=== PATIENT | female | born 1970 | race Caucasian/White ===

== ENCOUNTER 2017-07-19 12:43 | Emergency (ER) | payer SELFPAY ==
[2017-07-19 12:44] VITALS: BP 151/96; PULSE 91; RESP 16; TEMP 37.7; O2SAT 98; BMI 29.0
--- NOTE | 2017-07-19 13:21 | RAD_ITS ---
STUDY: X-RAY CHEST REASON FOR EXAM: Female, 47 years old. Cough. Body aches and chills. TECHNIQUE: PA and lateral views of the chest. COMPARISON: Comparison is made with prior study dated January 10, 2016. FINDINGS: There is evidence of a focal lingular infiltrate. Mild increased markings at the right lung base. There is no demonstrated pleural abnormality. Normal size heart. Normal mediastinum and sharda. Normal visualized pulmonary arteries. Normal visualized aortic arch and descending thoracic aorta. Normal visualized thoracic spine. Normal visualized ribs, clavicles, and shoulders. There is no demonstrated abnormality of the visualized soft tissue structures of the upper abdomen. RAD/Chest PA and Lateral IMPRESSION: Lingular infiltrate. Mild increased markings at the right lung base. Electronically Signed: Brenton Cuellar MD at 14:19 EDT Tel [phone], Service support ,
[2017-07-19 13:41] LABS: Absolute Lymphocyte Count 1.73 X10^3/ul (0.83-4.51); Absolute Neutrophil Count 4.1 X10^3/uL (2.0-7.7); Basophil# 0.03 X10^3/uL; Basophil% 0.5 % (0-1); Eosinophil# 0.05 X10^3/uL; Eosinophils% 0.8 % (0-5); Hemoglobin 13.3 g/dl (12.0-15.0); Lymphocyte # 1.73 X10^3/ul (4.0); Lymphocyte % 26.8 % (19-41); Mean Corp Hgb Conc 33.3 g/gl (32-36); Mean Corpuscular Hgb 29.9 pg (27.0-32.0); Mean Corpuscular Volume 89.9 fL (81-99); Mean Platelet Vol. 9.5 fl (6.2-12.0); Monocyte# 0.52 X10^3/uL; Neutrophil # 4.12 X10^3/uL (2.7-7.7); Neutrophil % 63.7 % (47-70); Platelet Count 310 K/mm3 (150-450); RBC Distribution Width CV 13.3 % (11.6-14.6); Red Blood Count 4.45 M/mm3 (4.2-5.4); White Blood Count 6.5 K/mm3 (4.4-11.0)
[2017-07-19] MEDS: 0.9% Normal Saline 1,000 ML 1000 ML IV (13:41)
[2017-07-19] MEDS: Ondansetron 4 MG/2 ML Vial IV (13:42)
[2017-07-19] MEDS: Ketorolac 30 MG/ML Syringe IV (13:42)
[2017-07-19 13:44] LABS: POSITIVE COUNT NO; POSITIVE DIFFERENTIAL NO; POSITIVE MORPHOLOGY NO
[2017-07-19 13:51] LABS: Anion Gap 7 (5-15); BUN 10 mg/dL (7-18); BUN/Creat Ratio 10.8 RATIO (10-20); Calcium,Total 8.6 mg/dL (8.5-10.1); Chloride 104 mmol/L (98-107); Creatinine, Serum 0.92 mg/dL (0.55-1.02); EST Glomerular Filtration Rate 69 mL/min (>60); Est Glom Filt Rate - Afr Amer 84 mL/min (>60); Estimated Creatinine Clearance 70.77 ml/min; Glucose 85 mg/dL (74-106); Potassium 3.5 mmol/L (3.5-5.1); Sodium Level 140 mmol/L (136-145)
--- NOTE | 2017-07-19 14:40 | EKG12_ITS ---
Test Reason : COLD SX Blood Pressure : / mmHG Vent. Rate : 070 BPM Atrial Rate : 070 BPM P-R Int : 176 ms QRS Dur : 088 ms QT Int : 416 ms P-R-T Axes : 073 060 072 degrees QTc Int : 449 ms Normal sinus rhythm with sinus arrhythmia Normal ECG Confirmed by YONATHAN VEE ([id number]), editor department EMIL SANCHEZ ([id number]) on 07/22/2017 1:35:39 PM Referred By: MED Confirmed By:YONATHAN VEE
--- NOTE | 2017-07-19 14:40 | ED.VISSUMM ---
- ER Visit Summary Date of Service: 07/19/17 Chief Complaint: Cough, body aches, chills History of Present Illness: The patient is a 47 F with the above symptoms for the past 1 week. Patient states it started with an ear infection and quickly progressed into cough and body aches. She states her temperature last night was 102.3. She does have chest congestion with a cough but is not really bringing up much sputum. She states she had walking pneumonia a couple of months ago. Physical Examination: Blood pressure is 151/96, temperature 100.0, heart rate 91, respiratory rate 16, pulse ox 98% on room air. Patient is ill-appearing but not toxic. Head neck examination reveals dry mucous membranes. Heart is regular rate and rhythm. No lung sounds are clear with good air movement throughout. Abdomen is soft nontender. Extremity examination reveals no calf tenderness or edema. She has no rash or lesions. Neuro exam is unremarkable. Test Results: Two-view chest x-ray read by radiology reveals a lingular infiltrate. There is mild increased markings at the right lung base. CBC and chemistry studies are unremarkable. Emergency Department Course and Treatment: Patient is given IV fluids, morphine, Toradol, and Zofran. Should be treated with a course of Levaquin, first dose given here. Treatment Plan: [] Disposition: Discharge Impression: Lingular pneumonia This note was generated with [employer] dictation software. It may contain incorrect words, spelling, and punctuation that were not noted in review of the chart prior to signing ED Disposition - Plan for ED Patient: Chief Complaint: Cold Sx Referrals: Leola Gibbs [Primary Care Provider] -
--- NOTE | 2017-07-19 14:42 | ED.DEP ---
ED Disposition - Plan for ED Patient: Disposition: Home or Assisted Living Chief Complaint: Cold Sx Instructions: ED Pneumonia Adult Prescriptions: Levofloxacin [Levaquin] 750 mg PO DAILY #4 tablet Referrals: Leola Gibbs [Primary Care Provider] - 5-7 Days
[2017-07-19] MEDS: levoFLOXacin 750 MG Tablet PO (15:06)
[2017-07-19 15:08] VITALS: BP 129/78; PULSE 69; RESP 15; O2SAT 97
== END 2017-07-19 15:09 | disposition home or self-care (01) ==
PROVIDERS: Emergency Provider Emergency Medicine; Family Provider Family Medicine; PCP Family Medicine
DX: J18.9 Pneumonia, unspecified organism (principal); Z72.0 Tobacco use
CPT/HCPCS: 71046; 80048; 85025; 93005; 96361; 96374; 96375; 99284; J7030; A4216; J2405

== ENCOUNTER 2017-07-22 10:40 | Emergency (ER) | payer SELFPAY ==
[2017-07-22 10:41] VITALS: BP 101/62; PULSE 96; RESP 16; TEMP 36.4; O2SAT 100; BMI 28.1
--- NOTE | 2017-07-22 10:48 | ED.DCSUM_ITS ---
- ER Visit Summary Date of Service: 07/22/17 Chief Complaint: Short of breath and cough History of Present Illness: The patient is a [address] Wallace. She reports that she has a cough began 3-4 weeks ago. She was seen in the emergency department 3 days ago and diagnosed with pneumonia. She was placed on Levaquin. She reports that she has been wheezing and has mild to moderate shortness of breath. She does smoke 1 pack per day. Physical Examination: Vitals: Stable. Afebrile. General: Well-nourished and well-developed. Head: Normocephalic atraumatic. Neck: Supple, no lymphadenopathy. No JVD. Nontender. Cardiovascular: Regular rate and rhythm. No murmurs. Respiratory: No respiratory distress. Mild wheezing bilaterally with good air movement. Abdominal: Soft, nontender, nondistended, normal bowel sounds. No guarding, rebound, or peritoneal signs. Back: Nontender. Extremities: Nontender, no edema. Skin: Normal color, no rash. Neurologic: Alert and oriented ?3. Cranial nerves II through XII are intact. Normal strength and sensation. Psych: Normal affect. Emergency Department Course and Treatment: Patient was treated albuterol Atrovent aerosols. She reports great improvement. She is given a dose of prednisone p.o. Treatment Plan: Patient will be discharged albuterol MDI and a 5 day burst of prednisone. Instructed to continue her Levaquin. Follow-up her primary care physician 1-2 days not improving. Return to the emergency department for any worsening symptoms. Disposition: To home in improved and stable condition. Impression: 1. Pneumonia, community-acquired. 2. Bronchospasm. 3. Tobacco abuse. This note was generated with [employer] dictation software. It may contain incorrect words, spelling, and punctuation that were not noted in review of the chart prior to signing ED Disposition - Plan for ED Patient: Disposition: Home or Assisted Living Chief Complaint: General Illness Instructions: ED Pneumonia Adult Prescriptions: Albuterol Inhaler [Ventolin Hfa] 1 - 2 puff INHALATION Q4H PRN PRN #1 inhaler PRN Reason: Wheezing Prednisone [Deltasone] 60 mg PO DAILY #15 tablet Referrals: Leola Gibbs [Primary Care Provider] - 3-5 Days if not improving
[2017-07-22 11:12] VITALS: PULSE 100; RESP 20
[2017-07-22] MEDS: Ipratropium/Albuterol Sulfate 3 ML AMPUL.NEB INHALATION (11:12)
== END 2017-07-22 12:14 | disposition home or self-care (01) ==
LOC: ED 11:09
PROVIDERS: Emergency Provider Emergency Medicine; Family Provider Family Medicine; PCP Family Medicine
DX: J18.9 Pneumonia, unspecified organism (principal); J98.01 Acute bronchospasm; F17.200 Nicotine dependence, unspecified, uncomplicated; I10 Essential (primary) hypertension; Z79.82 Long term (current) use of aspirin; Z79.899 Other long term (current) drug therapy
CPT/HCPCS: 94640; 99282

== ENCOUNTER 2018-03-15 19:29 | Emergency (ER) | payer SELFPAY ==
[2018-03-15 19:30] VITALS: BP 163/99; PULSE 60; RESP 17; TEMP 36.3; O2SAT 99; BMI 27.4
--- NOTE | 2018-03-15 20:19 | ED.DCSUM_ITS ---
- ER Visit Summary Date of Service: 03/15/18 Chief Complaint: Left eye swelling History of Present Illness: The patient is a 48 F presenting for evaluation secondary to left eye swelling. Patient reports that over the course the last 3 days she has had progressive swelling of her left eye after she had a eyelash that was flipped internally in the corner of her eye. She reports mild blurred vision associated with this. It started with itching, now it is has progressed to pain and matting. She denies any injuries or chemical exposures. Physical Examination: Ocular exam shows swelling of the patient's superior left eyelid. Eyelid eversion shows no evidence of hordeolum, chalazion, or foreign body. PRL, EOMI normal conjunctivae and sclera. Cornea is normal. Extraocular motion is nonpainful. Test Results: None indicated Emergency Department Course and Treatment: Patient presented with eye swelling that seems consistent with blepharitis. She has no evidence of septal or preseptal cellulitis. Patient was placed on antibiotic ointment was recommended on continued warm compresses. She will follow-up with primary care as needed. Disposition: Discharge Impression: 1. OS blepharitis This note was generated with [employer] dictation software. It may contain incorrect words, spelling, and punctuation that were not noted in review of the chart prior to signing ED Disposition - Plan for ED Patient: Disposition: Home or Assisted Living Chief Complaint: Eye Problem Diagnosis: Blepharitis Instructions: ED Inflammation Eyelid Referrals: Leola Gibbs [Primary Care Provider] - 3-5 Days
[2018-03-15 20:29] VITALS: BP 152/60; PULSE 62; RESP 18; O2SAT 98
== END 2018-03-15 20:29 | disposition home or self-care (01) ==
PROVIDERS: Emergency Provider Emergency Medicine; Family Provider Family Medicine; PCP Family Medicine
DX: H01.005 Unspecified blepharitis left lower eyelid (principal); I10 Essential (primary) hypertension; Z72.0 Tobacco use; Z79.51 Long term (current) use of inhaled steroids; Z79.82 Long term (current) use of aspirin; Z79.899 Other long term (current) drug therapy
CPT/HCPCS: 99283

== ENCOUNTER 2018-05-03 11:58 | Emergency (ER) | payer OTHER, SELFPAY ==
[2018-05-03 11:59] VITALS: BP 168/108; PULSE 84; RESP 17; TEMP 36.4; O2SAT 99; BMI 28.1
--- NOTE | 2018-05-03 12:14 | ED.DCSUM_ITS ---
- ER Visit Summary Date of Service: 05/03/18 Chief Complaint: Facial swelling History of Present Illness: The patient is a 48 F presents to the emergency department dental pain and facial swelling. Patient has had poor dentition for years. She is actually scheduled for dental extraction on Saturday. She states yesterday, she was eating potato chips. She states that she think 1 poked into her upper gum. Overnight throughout the morning, she had some increased swelling. She did take Naprosyn with some improvement. She denies any trouble speaking or swallowing. She denies any fevers or chills. She has no history of immunosuppression. Physical Examination: Exam is relatively unremarkable. Patient does have swelling over the gumline of tooth 2 and 3. Her teeth are eroded significantly. Her posterior oropharynx is widely patent. There is no trismus. She has no stridor. Neck is supple without lymph adenopathy. Test Results: [] Emergency Department Course and Treatment: Patient has upper dental abscess with facial swelling. There is nothing that would benefit from incision or drainage at this time. The patient was started on Augmentin continue anti- inflammatories. She already has dental follow-up in place in 4 days and I feel this is reasonable. Patient will be discharged home. Treatment Plan: [] Disposition: Discharge Impression: 1. Periapical abscess This note was generated with [employer] dictation software. It may contain incorrect words, spelling, and punctuation that were not noted in review of the chart prior to signing ED Disposition - Plan for ED Patient: Chief Complaint: Dental Instructions: ED Abscess Dental Prescriptions: Amox/Clavulanate Tablet [Augmentin Tablet] 875 mg PO Q12H #20 tab Naproxen [Naprosyn] 500 mg PO BID PRN #20 tab Referrals: Leola Gibbs [Primary Care Provider] -
[2018-05-03 12:15] VITALS: PULSE 80; RESP 14; O2SAT 99
[2018-05-03] MEDS: Amox/Clavulanate 875 MG Tablet PO (12:28)
== END 2018-05-03 12:31 | disposition home or self-care (01) ==
PROVIDERS: Emergency Provider Emergency Medicine; Family Provider Family Medicine; PCP Family Medicine
DX: K04.7 Periapical abscess without sinus (principal); Z72.0 Tobacco use; Z79.51 Long term (current) use of inhaled steroids; Z79.82 Long term (current) use of aspirin; Z79.899 Other long term (current) drug therapy
CPT/HCPCS: 99282

== ENCOUNTER 2018-10-14 07:09 | Emergency (ER) | payer OTHER, SELFPAY ==
[2018-10-14 07:10] VITALS: BP 171/113; PULSE 66; RESP 18; TEMP 36.6; O2SAT 100; BMI 29.0
--- NOTE | 2018-10-14 07:21 | ED.VIS.HA ---
History of Present Illness Chief Complaint: Headache Informant: Patient Onset: Yesterday Context: Sudden Timing: Continuous Quality: Similar Prior Headaches, Dull Location: Bifrontal, bitemporal and facial Current Severity: Severe Maximum Severity: Severe Worsened by: Apparently nothing Relieved by: Nothing Associated Symptoms: Negative for: Fever, Nausea, Vomiting, Sore Throat, Sinus Pressure, Numbness, Tingling, Preceding Aura, Visual Changes, Blurred Vision, Photophobia, Visual Loss Injury: - - There is no history of trauma Narrative: Patient is a middle-aged woman who presents with bifrontal, bitemporal and by facial pressure dull sensation that started yesterday. She states she has history of migraines. She is no longer on migraine medication. She denies photophobia, change in vision or double vision. She denies auditory symptoms. She denies neck stiffness. She does report pain radiating to the neck and both shoulders. She denies cardiac restaurant symptoms. She denies vomiting or diarrhea. She denies urologic symptoms. She denies rash. She denies paresthesia, anesthesia motors. She denies vertiginous symptoms or problems with balance. Prior similar symptoms: Yes Recent Illness/Hospitalization: No Past Medical History - Allergies and Home Meds Allergies/Adverse Reactions: Allergies No Known Allergies Allergy (Verified 10/14/18 07:11) Primary Care Physician: Leola Gibbs [Primary Care Provider] - Prior records reviewed: Yes Past Medical History: - - Based on medication patient has history of hypertension. Surgical History: noncontributory Lives: Spouse/ Significant Other Smoking Status: Current every day smoker Alcohol: None Drugs: None - Family History Maternal Family History: Reports: Diabetes, Heart Disease - Mother at age of 43 because of heart attack. Paternal Family History: Reports: Hypertension Review of Systems General: Reports: Weight loss - Intentional weight loss. Denies: Chills, Fever, Malaise, Sweats Eyes: Denies: Visual changes - bilaterally, Blurred Vision - bilaterally, Diplopia ENT: Denies: Rhinorrhea, Sore throat Cardiovascular: Denies: Chest pain, Palpitations Respiratory: Denies: Dyspnea, Cough, Dyspnea on exertion Gastrointestinal: Denies: Abdominal pain, Nausea, Vomiting, Diarrhea, Melena, Hematochezia Genitourinary: Denies: Dysuria, Hematuria, Frequency Musculoskeletal: Reports: Neck pain. Denies: Myalgias, Arthralgias, Back pain, Swelling, Extremity Pain, -, - Skin: Denies: Rash, Wounds Neurological: Reports: Headache. Denies: Weakness, Parasthesia, Numbness, -, - Hematologic: Denies: Easy bruising, Easy bleeding Allergy: Denies: Uticaria, Swelling of the mouth Physical Exam Vital Signs/Narrative: Vital Signs Temp Pulse Resp BP Pulse Ox 10/14/18 07:10 97.9 F 66 18 171/113 H 100 General: Well nourished, Well developed Head: NC, AT. Negative for: Temporary Artery Tenderness, Vesicular Rash, Sinus Tenderness Eyes: Perrl, EOMI, - - There is no evidence of photophobia. Cup-to-disc ratio is normal. There is no papilledema.. Negative for: Pale conjunctiva, Scleral icterus ENT: Moist mucous membranes, No rhinorrhea Neck: Supple, No Lymphadenopathy, No JVD, Nontender, No Meningismus Cardiovascular: Regular rate, Regular rhythm, No murmurs Respiratory: No distress, CTA bilaterally, Chest nontender Abdomen: Soft, Nontender, Nondistended, Normal bowel sounds Back: Nontender, Normal Inspection Extremities: Nontender, No edema Skin: Normal color, No rash, No Trauma. Negative for: Cyanosis, Diaphoresis, Jaundice Neuro: Alert, Oriented x3, Cranial nerves II-XII grossly intact, Normal Strength, Normal Sensation, Normal DTR, Normal Gait Psychological: Normal affect - NIH Stroke Scale 1a Level of Consciousness: 0 1b LOC Questions (Score 2 if aphasic/stupor): 0 1c LOC Commands (Only score 1st attempt): 0 2 Best Gaze (If aphasic, use reflexive mvmts.): 0 3 Visual: 0 4 Facial Palsy: 0 5 Motor Arm Right (UN = amputation/fusion): 0 5 Motor Arm Left: 0 6 Motor Leg Right: 0 6 Motor Leg Left: 0 7 Limb ataxia (Only + if out of proportion): 0 8 Sensory (Aphasia/stupor=0 or 1, coma=2): 0 9 Best Language: 0 10 Dysarthria (mute, coma=2, intubated=UN): 0 11 Extinction and Inattention (only scored if +): 0 Total Score: 0 Diagnostic/Tx/Re-eval - Medical Decision Making Patient presents with history of migraine headaches. She reports by lateral headache. Patient states she has been diagnosed with migraines with the symptoms. The symptoms are atypical for migraine headache. Will treat with Benadryl, Reglan and Toradol. Will reassess. Imaging is not indicated since she has a normal neurologic exam and is afebrile. Blood pressure is slightly elevated and will monitor. Patient was reassessed at 0905. She sitting up smiling using her cell phone. Patient states she feels much better. Plan is to discharge to home. ED Disposition - Plan for ED Patient: Disposition: Home or Assisted Living Diagnosis: Bilateral headache Instructions: ED Cephalgia Unspecified Referrals: Leola Gibbs [Primary Care Provider] - As Needed
[2018-10-14] MEDS: Metoclopramide 10 MG/2 ML Vial IV (07:34)
[2018-10-14] MEDS: Ketorolac 30 MG/ML Syringe 15 MG IV (07:35)
[2018-10-14] MEDS: DiphenhydrAMINE 50 MG/ML Syringe 25 MG IV (07:35)
[2018-10-14 10:02] VITALS: BP 152/78; PULSE 83; RESP 18; O2SAT 98
== END 2018-10-14 10:18 | disposition home or self-care (01) ==
PROVIDERS: Emergency Provider Emergency Medicine; Family Provider Family Medicine; PCP Family Medicine
DX: R51 Headache (principal); F17.200 Nicotine dependence, unspecified, uncomplicated
CPT/HCPCS: 96374; 96375; 99284; A4216

== ENCOUNTER 2019-06-12 18:07 | Emergency (ER) | payer SELFPAY ==
[2019-06-12 18:08] VITALS: BP 156/103; PULSE 67; RESP 18; TEMP 35.5; O2SAT 100; BMI 27.8
--- NOTE | 2019-06-12 18:24 | EKG12_ITS ---
Test Reason : HTN Blood Pressure : / mmHG Vent. Rate : 065 BPM Atrial Rate : 065 BPM P-R Int : 174 ms QRS Dur : 094 ms QT Int : 454 ms P-R-T Axes : 073 065 077 degrees QTc Int : 472 ms Normal sinus rhythm Nonspecific ST abnormality Abnormal ECG Confirmed by JEREMIAH BAINS, TIEN ([id number]), editor greeting card EMIL SANCHEZ ([id number]) on 06/15/2019 11:07:31 AM Referred By: FATIMAH Confirmed By:KARON DANIELS MD
--- NOTE | 2019-06-12 18:25 | ED.VISSUMM ---
- ER Visit Summary Date of Service: 06/12/19 Chief Complaint: High blood pressure, dizziness History of Present Illness: The patient is a 49 F who complains of high blood pressure. She has been off of her medications for a couple of weeks because she ran out. She has an outstanding bill at her primary care physician's office so she has not been able to get back into see them. She is on lisinopril/HCTZ daily. Her last dose of this was a couple of weeks ago. She denies chest pain or shortness of breath. At times she gets dizzy and feels like she cannot stand up. Physical Examination: Vital signs reviewed. HEENT exam unremarkable. Heart is regular rate and rhythm without murmurs. Lungs are clear to auscultation. Abdomen is soft and nontender. Extremities reveal no edema. Peripheral pulses are equal. Skin exam normal. Neurologic exam normal. Test Results: EKG was sinus rhythm with a rate of 65. There are no ischemic changes. Emergency Department Course and Treatment: The patient was given a dose of her lisinopril/HCTZ. Her vital signs other than the blood pressure unremarkable. I do not feel she requires any further testing. She needs to get back on her medications. I will give her a prescription for this. She will need to follow-up with her doctor. Treatment Plan: [] Disposition: Discharge Impression: Hypertension This note was generated with [employer] dictation software. It may contain incorrect words, spelling, and punctuation that were not noted in review of the chart prior to signing ED Disposition - Plan for ED Patient: Referrals: Leola Gibbs [Primary Care Provider] -
[2019-06-12] MEDS: Lisinopril 20 MG Tablet PO (18:38)
[2019-06-12] MEDS: hydroCHLOROthiazide 25 MG Tablet PO (18:38)
--- NOTE | 2019-06-12 18:53 | ED.DEP ---
ED Disposition - Plan for ED Patient: Disposition: Home or Assisted Living Instructions: HYPERTENSION, Established Prescriptions: Lisinopril/Hydrochlorothiazide [Lisinopril-Hctz 20-25 mg Tab] 1 ea PO DAILY #30 tab Transmission Status: Pending to [facility] #30 Referrals: Leola Gibbs [Primary Care Provider] - Additional Instructions: Prescription was electronically transmitted to [facility]
[2019-06-12 19:14] VITALS: BP 144/93; PULSE 73; RESP 18; O2SAT 98
== END 2019-06-12 19:15 | disposition home or self-care (01) ==
PROVIDERS: Emergency Provider Emergency Medicine; PCP Family Medicine
DX: I10 Essential (primary) hypertension (principal); Z91.14 Patient's other noncompliance with medication regimen; Z72.0 Tobacco use
CPT/HCPCS: 93005; 99283

== ENCOUNTER 2019-07-04 22:02 | Emergency (ER) | payer SELFPAY ==
[2019-07-04 22:04] VITALS: BP 107/72; PULSE 88; RESP 20; TEMP 36.3; O2SAT 99; BMI 27.9
[2019-07-04 22:05] VITALS: BP 107/72; PULSE 88; RESP 20; TEMP 36.3; O2SAT 99
--- NOTE | 2019-07-04 22:31 | ED.DCSUM_ITS ---
- ER Visit Summary Date of Service: 07/04/19 Chief Complaint: Facial swelling History of Present Illness: The patient is a 49 F whose dentist is Dr. Quispe. She reports he has left facial swelling that began yesterday. She has had left mandibular pain for the past 3 days. She reports is 5 out of 10 in severity. She describes it as pulling. It is increased with opening her mouth. Is decreased with ibuprofen. She denies any hot or cold sensitivity. No fever, chills, nausea, or vomiting. Physical Examination: Vitals: Stable. Afebrile. Mouth: No trismus. No edema of the floor of the mouth. Pain with percussion of left mandibular first and second premolars as well as the first and second molars. There is no focal abscess amenable to drainage. She has widespread dental decay. There is swelling of the left mandible. General: A&O x 3. NAD. Cardiovascular exam: Regular rate and rhythm, no murmur, rub or gallop. Respiratory exam: Clear to auscultation bilaterally. No wheezes or stridor. Abdominal exam: Soft, nontender, nondistended, normal bowel sounds. No perito carlos manuel signs. Extremity: No clubbing, cyanosis, or edema. Emergency Department Course and Treatment: Patient was treated with penicillin and naproxen. She is resting comfortably. Treatment Plan: Patient be discharged penicillin. Instructed to follow-up with her dentist as soon as possible. We did discuss the signs of Stevan's angina. She is instructed to return for these. Disposition: To home in improved and stable condition. Impression: 1. Dental abscess. This note was generated with [employer] dictation software. It may contain incorrect words, spelling, and punctuation that were not noted in review of the chart prior to signing ED Disposition - Plan for ED Patient: Disposition: Home or Assisted Living Instructions: Dental Abscess Prescriptions: Naproxen [Naprosyn] 500 mg PO BID #14 tab Prescription Printed Penicillin V Potassium 500 mg PO 4X/DAY #40 tab Prescription Printed Referrals: Dentist,Your [STAFF PHYSICIAN] - As soon as possible
[2019-07-04] MEDS: Penicillin Vk 250 MG Tablet 500 MG PO (22:36)
[2019-07-04] MEDS: Naproxen 250 MG Tablet 500 MG PO (22:36)
== END 2019-07-04 22:52 | disposition home or self-care (01) ==
LOC: ED 22:51
PROVIDERS: Emergency Provider Emergency Medicine; PCP Family Medicine
DX: K04.7 Periapical abscess without sinus (principal); I10 Essential (primary) hypertension; Z72.0 Tobacco use
CPT/HCPCS: 99283